=== PATIENT | male | born 1940 | race Caucasian/White ===

== ENCOUNTER 2018-05-21 15:53 | Emergency (ER) | payer MEDICARE, OTHER ==
[2014-05-03 10:16] VITALS: Wt 98.9 kg
[~2018-05-21 15:53] MED LIST: APIX5TAB PO; ASP325 PO; ASP81 PO; ASPI81TA94 PO; ATR80PT PO; BUP75 PO; CHOLESTEROL MEDS; CIPR-214 PO; CIPR-344 PO; CIPR500S3 PO; DOCU-202 PO; ERGO500014 PO; FAMO20TA28 PO; GELA600C5 PO; GING250C3 PO; GLIP-152 PO; HYDR-389 PO; IBUP800T37 PO; KET10 PO; LAMO100T52 PO; LITHOBID PO; LOPE1LIQ49 PO; LURA20TA PO; MECL25TA27 PO; MELA3TAB31 PO; METF-452 PO; MULT1TAB64 PO; NITR0.4T3 SL; OLAN10TA19 PO; OMEG300C PO; OMEG500C5 PO; OMEP-137 PO; OXYB5SYR PO; OXYB5TAB86 PO; PER PO; PHEN200T32 PO; QUET25TA30 PO; ROSU20TA23 PO; SIMV-42 PO; SIMV-44 PO; SLEEPING PILL; TAMS0.4C70 PO; VENL25TA29 PO; [UNRECOGNIZED DRUG - REMARK]; [UNRECOGNIZED DRUG - REMARK]
--- NOTE | 2018-05-21 16:04 | ER Report ---
History and Physical Time Seen By MD: 16:05 HPI/ROS CHIEF COMPLAINT: Right sided neck and shoulder pain HISTORY OF PRESENT ILLNESS: 78-year-old male patient presents to emergency room with complaint of right-sided neck and shoulder pain. Patient states that he has been having problems for the last 3 days with this. He states that he felt things were a little bit tight in the shoulder and then he woke up with significant pain. Patient states he still has significant amounts of pain to the neck. He denies having any injury to the leg. He denies any nausea, vomiting or diarrhea. Patient states she's not had any fevers or chills. Patient states that there is nothing seems to make the pain better or worse. He states the pain is very constant. He denies any pain that radiates down the arm with numbness or tingling in the arm. REVIEW OF SYSTEMS: Respiratory: No cough, no dyspnea. Cardiovascular: No chest pain, no palpitations. Gastrointestinal: No vomiting, no abdominal pain. Musculoskeletal: As noted above Allergies: Coded Allergies: clarithromycin (Verified Allergy, Severe, HIVES, FACE RED AND HOT, 05/21/18) erythromycin base (Verified Allergy, Severe, HEART RACING, FACE RED, HIVES NECK TO CHEST, 05/21/18) paroxetine (Verified Allergy, Severe, HALLUCINATES, 05/21/18) Penicillins (Verified Allergy, Intermediate, RASH, 05/21/18) Uncoded Allergies: bee and wasps (Allergy, Unknown, RED, PAINFUL AND SWELLING, 11/21/13) Home Meds Active Scripts Cyclobenzaprine Hcl (CYCLOBENZAPRINE HCL) 10 Mg Tablet, 10 MG PO TID PRN for MUSCLE SPASMS, #12 TAB Prov:LIZZIE DONIS TOBACCO SWEEPER 05/21/18 Reported Medications Ibuprofen (IBUPROFEN) 800 Mg Tablet, 1 TAB PO TID, #50 TAB 11/30/16 Phenazopyridine Hcl (PHENAZOPYRIDINE HCL) 200 Mg Tablet, 200 MG PO TID, #20 TAB 11/30/16 Famotidine (PEPCID) 20 Mg Tablet, 20 MG PO BID, #20 TAB 11/30/16 Acetaminophen/Hydrocodone (HYDROCODON-ACETAMINOPH 7.5-325) 1 Each Ea, 1 EACH PO Q4-6H PRN for PAIN, #30 EA 11/30/16 Ciprofloxacin Hcl 500 Mg Tab (CIPRO 500 MG TAB) 500 Mg Tablet, 500 MG PO BID for 2 Days, #20 TAKE 500MG TWICE A DAY FOR TWO DAYS, THEN 1/2 PILL TWICE A DAY AT BEDTIME THEREAFTER. 11/30/16 Melatonin (MELATONIN) 3 Mg Tablet, 6 MG PO QHS 11/25/16 Gelatin (GELATIN) 600 Mg Capsule, 1300 MG PO, CAPSULE 11/25/16 Lurasidone Hcl (LATUDA) 20 Mg Tablet, 1 TAB PO DAILY 02/25/15 Lamotrigine (LAMOTRIGINE) 100 Mg Tablet, 100 MG PO DAILY 02/25/15 Multivitamin (MULTI VITAMIN DAILY) 1 Each Tablet, 1 EACH PO DAILY 04/26/14 [place]-3 Fatty Acids (FISH OIL) 500 Mg Capsule.dr, 500 MG PO 04/26/14 Quetiapine Fumarate (SEROQUEL) 25 Mg Tablet, 12.5 MG PO QHS PRN for SLEEP, #60 1 Refill 03/06/14 Nitroglycerin (NITROGLYCERIN) 0.4 Mg Tab.subl, 0.4 MG SL Q5MIN PRN for CHEST PAIN 03/06/14 Romelia Root (ROMELIA) 250 Mg Capsule, 550 MG PO BID, CAPSULE 03/01/14 Aspirin (ASPIRIN) 81 Mg Tab.chew, 81 MG PO QDAY, TAB.CHEW TAKE 1 TABLET BY MOUTH EVERY DAY 11/21/13 Atorvastatin (LIPITOR) 80 Mg Tab, 40 MG PO QHS, TAB TAKE ONE TABLET BY MOUTH ONCE A DAY AT BED TIME 08/30/13 Glipizide (GLIPIZIDE) 5 Mg Tablet, 2.5 MG PO BID 08/30/13 Past Medical/Surgical History Patient has a past medical history of TBI, angina, hyperlipidemia, SOB with exercise, pneumonia, pulmonary embolism, difficulty swallowing, liver disease, prostate cancer, vertigo, type 2 diabetes, bipolar. Patient has surgical history of left inguinal hernia repair, umbilical hernia repair, colonoscopy, a surgery due to cancer, radical prostatectomy, right knee surgery, ankle surgery, hip surgery, thumb surgery, deviated septum. Reviewed Nurses Notes: Yes Hx Smoking: No Smoking Status: Never Smoker Hx Substance Use Disorder: No Hx Alcohol Use: No Constitutional Vital Sign - Last 24 Hours 11/24/18 11/24/18 11/24/18 11/24/18 16:02 16:08 16:23 16:30 Temp 97.9 Pulse 83 81 73 Resp 18 B/P (MAP) 157/95 113/93 (100) Pulse Ox 95 94 96 O2 Delivery Room Air 05/21/18 05/21/18 05/21/18 05/21/18 16:38 16:53 17:00 17:08 Pulse 76 71 70 B/P (MAP) 127/88 (101) Pulse Ox 95 94 93 05/21/18 05/21/18 05/21/18 05/21/18 17:30 17:38 17:43 17:58 Pulse 70 66 66 B/P (MAP) 128/78 (95) Pulse Ox 96 93 94 05/21/18 05/21/18 05/21/18 05/21/18 18:00 18:13 18:28 18:30 Pulse 67 69 B/P (MAP) 135/63 (87) 117/78 (91) Pulse Ox 94 94 05/21/18 05/21/18 05/21/18 18:43 18:58 19:00 Pulse 72 69 B/P (MAP) 131/75 (93) Pulse Ox 93 96 Physical Exam General Appearance: The patient is alert, has no immediate need for airway protection and no current signs of toxicity. Respiratory: Chest is non tender, lungs are clear to auscultation. Cardiac: regular rate and rhythm Musculoskeletal: Neck: Neck is supple and tender, patient has less discomfort palpation. Extremities have full range of motion and are non tender. Skin: No rashes or lesions. Psych: Patient does have a rambling speech. DIFFERENTIAL DIAGNOSIS: After history and physical exam differential diagnosis was considered for cervical spine strain, muscle spasm. Medical Decision Making ED Course/Re-evaluation ED Course Patient was admitted exam room, history and physical were obtained. Differential diagnoses were considered. On examination lungs are clear, heart is regular, patient does have muscle tightness to the right trapezius muscle. An x-ray of the cervical spine was done which showed no acute findings. Patient was requesting trigger point injection to help with his pain. Trigger point and check injections were done to the trapezius muscle. Patient did have improvement in his discomfort. He had increased range of motion. We will prescribe a muscle relaxer and have him follow-up with his primary care provider in the next week. He is to limit his activity by pain. He is to return to emergency room if condition worsens. Patient did have flight of ideas and rapid speech while he was here. He talked about being manic and has felt like his melba has gotten wo rse over the last 3 weeks. I did offer him admission to behavioral health which he adamantly refused. Decision to Disposition Date: May 21, 2018 Decision to Disposition Time: 19:01 Depart Departure Latest Vital Signs Vital Signs Date Time Temp Pulse Resp B/P (MAP) Pulse Ox O2 Delivery O2 Flow Rate FiO2 05/21/18 19:00 131/75 (93) 05/21/18 18:58 69 96 05/21/18 16:02 97.9 18 Room Air Impression: Primary Impression: Muscle spasm Condition: Improved Disposition: HOME OR SELF-CARE New Scripts Cyclobenzaprine Hcl (CYCLOBENZAPRINE HCL) 10 Mg Tablet 10 MG PO TID PRN for MUSCLE SPASMS, #12 TAB Prov: LIZZIE DONIS 05/21/18 Patient Instructions: Muscle Spasm (ED) Additional Instructions: Limit activity by pain. Follow up with your primary care provider in the next week. Take the medication as prescribed. Return to the ER if condition worsens. Follow up with Physical Therapy to help with the muscle spasms of the neck. LIZZIE DONIS May 21, 2018 16:04
--- NOTE | 2018-05-21 18:17 | RADIOLOGY IMAGING REPORT ---
FACILITY: [facility] PATIENT NAME: Sagar Marshall : 1940 MR: [id number] V: [id number] EXAM DATE: ORDERING PHYSICIAN: LIZZIE DONIS TECHNOLOGIST: Location: [facility] Patient: Sagar Marshall : 1940 Visit/Account:[id number] Date of Sevice: 05/21/2018 CERVICAL SPINE MIN 4 VIEW INDICATION: Shoulder pain. COMPARISON: None available FINDINGS: 5 views of cervical spine. Mild reverse curvature due to positioning and/or degenerative changes. The vertebral bodies are aligned. No fracture or facet dislocation. Mild osteopenia. There i s diffuse [id number] degenerative changes more prominent cervical spine lower region. These inc lude disc space narrowing, endplate changes, osteophytes and facet arthropathy. Partial bony fusion o f C5-6. The endplates are maintained. The neural foramina do show some encroachment by the osteophyte s bilaterally. Prevertebral soft tissues are normal. Lung apices are clear. A benign soft tissue calc ification seen in the posterior neck soft tissue. IMPRESSION: Degenerative changes without acute abnormality. Report Dictated By: Ray Florian at 05/21/2018 6:12 PM Report E-Signed By: Ray Florian at 05/21/2018 6:14 PM WSN:[id number]
[2018-05-21 19:00] VITALS: BP 131/75
[2018-05-21] MEDS ORDERED: CYCL10TA29 PO (19:01)
[2018-05-21] MEDS ORDERED: CYCLOBENZAPRINE HCL 10 MG TH PO ONE (20:00)
== END 2018-05-21 19:18 | disposition home or self-care (01) ==
LOC: ER 16:00
DX: M62.838 Other muscle spasm (principal)
CPT/HCPCS: 72050; 99283

== ENCOUNTER 2018-05-24 23:01 | Emergency (ER) | payer MEDICARE, OTHER ==
[2014-05-03 10:16] VITALS: BMI 30.3
[~2018-05-24 23:01] MED LIST changes: +CYCL10TA29 PO
--- NOTE | 2018-05-24 23:03 | ER Report ---
History and Physical Time Seen By MD: 23:04 HPI/ROS CHIEF COMPLAINT: Left rib injury HISTORY OF PRESENT ILLNESS: 78-year-old male presents ambulatory to the ER complaining of left rib pain. He fell at home several hours ago injuring his left lower ribs. He shows a bruise to the lateral lower ribs. He has no shortness of breath. He's had no hemoptysis. He notes sharp pain 9/10 at a rate of bite breathing and touching the area. REVIEW OF SYSTEMS: Respiratory: No cough, no dyspnea. Cardiovascular: No chest pain, no palpitations. Gastrointestinal: No vomiting, no abdominal pain. Musculoskeletal: No back pain. Allergies: Coded Allergies: clarithromycin (Verified Allergy, Severe, HIVES, FACE RED AND HOT, 05/24/18) erythromycin base (Verified Allergy, Severe, HEART RACING, FACE RED, HIVES NECK TO CHEST, 05/24/18) paroxetine (Verified Allergy, Severe, HALLUCINATES, 05/24/18) Penicillins (Verified Allergy, Intermediate, RASH, 05/24/18) Uncoded Allergies: bee and wasps (Allergy, Unknown, RED, PAINFUL AND SWELLING, 11/21/13) Home Meds Active Scripts Hydrocodone Bit/Acetaminophen (HYDROCODON-ACETAMINOPHEN 5-325) 1 Each Tablet, 1 EACH PO Q4-6H PRN for PAIN, #8 TAKE ONE TABLET BY MOUTH EVERY 4-6 HOURS NEEDED FOR PAIN Prov:EMILY BETANCOURT DO 05/24/18 Cyclobenzaprine Hcl (CYCLOBENZAPRINE HCL) 10 Mg Tablet, 10 MG PO TID PRN for MUSCLE SPASMS, #12 TAB Prov:LIZZIE DONIS METROLOGY ENGINEER 05/21/18 Reported Medications Ibuprofen (IBUPROFEN) 800 Mg Tablet, 1 TAB PO TID, #50 TAB 11/30/16 Phenazopyridine Hcl (PHENAZOPYRIDINE HCL) 200 Mg Tablet, 200 MG PO TID, #20 TAB 11/30/16 Famotidine (PEPCID) 20 Mg Tablet, 20 MG PO BID, #20 TAB 11/30/16 Acetaminophen/Hydrocodone (HYDROCODON-ACETAMINOPH 7.5-325) 1 Each Ea, 1 EACH PO Q4-6H PRN for PAIN, #30 EA 11/30/16 Ciprofloxacin Hcl 500 Mg Tab (CIPRO 500 MG TAB) 500 Mg Tablet, 500 MG PO BID for 2 Days, #20 TAKE 500MG TWICE A DAY FOR TWO DAYS, THEN 1/2 PILL TWICE A DAY AT BEDTIME THEREAFTER. 11/30/16 Melatonin (MELATONIN) 3 Mg Tablet, 6 MG PO QHS 11/25/16 Gelatin (GELATIN) 600 Mg Capsule, 1300 MG PO, CAPSULE 11/25/16 Lurasidone Hcl (LATUDA) 20 Mg Tablet, 1 TAB PO DAILY 02/25/15 Lamotrigine (LAMOTRIGINE) 100 Mg Tablet, 100 MG PO DAILY 02/25/15 Multivitamin (MULTI VITAMIN DAILY) 1 Each Tablet, 1 EACH PO DAILY 04/26/14 [place]-3 Fatty Acids (FISH OIL) 500 Mg Capsule.dr, 500 MG PO 04/26/14 Quetiapine Fumarate (SEROQUEL) 25 Mg Tablet, 12.5 MG PO QHS PRN for SLEEP, #60 1 Refill 03/06/14 Nitroglycerin (NITROGLYCERIN) 0.4 Mg Tab.subl, 0.4 MG SL Q5MIN PRN for CHEST PAIN 03/06/14 Romelia Root (ROMELIA) 250 Mg Capsule, 550 MG PO BID, CAPSULE 03/01/14 Aspirin (ASPIRIN) 81 Mg Tab.chew, 81 MG PO QDAY, TAB.CHEW TAKE 1 TABLET BY MOUTH EVERY DAY 11/21/13 Atorvastatin (LIPITOR) 80 Mg Tab, 40 MG PO QHS, TAB TAKE ONE TABLET BY MOUTH ONCE A DAY AT BED TIME 08/30/13 Glipizide (GLIPIZIDE) 5 Mg Tablet, 2.5 MG PO BID 08/30/13 Past Medical/Surgical History Patient has a past medical history of TBI, angina, hyperlipidemia, SOB with exercise, pneumonia, pulmonary embolism, difficulty swallowing, liver disease, prostate cancer, vertigo, type 2 diabetes, bipolar. Patient has surgical history of left inguinal hernia repair, umbilical hernia repair, colonoscopy, a surgery due to cancer, radical prostatectomy, right knee surgery, ankle surgery, hip surgery, thumb surgery, deviated septum. Reviewed Nurses Notes: Yes Old Medical Records Reviewed: Yes Hx Smoking: No Smoking Status: Never Smoker Hx Substance Use Disorder: No Hx Alcohol Use: No Constitutional Vital Sign - Last 24 Hours 05/24/18 05/24/18 05/24/18 05/24/18 23:01 23:07 23:08 23:15 Temp 98.1 Pulse ??? 89 Resp 16 B/P (MAP) 132/73 (92) 132/73 ???/??? (1665) Pulse Ox 92 O2 Delivery Room Air 05/24/18 05/24/18 05/24/18 05/24/18 23:16 23:30 23:31 23:45 Pulse ? B/P (MAP) 116/77 (90) 113/67 (82) Pulse Ox 92 05/24/18 23:46 Pulse ??? Pulse Ox 92 Physical Exam General Appearance: The patient is alert, has no immediate need for airway protection and no current signs of toxicity.. Palpation of the head and neck reveals no tenderness or trauma HEENT: Pupils equal and round no injection. Oropharynx without redness or exudate, mucous. Membranes are moist. No dental trauma Respiratory: Chest is non tender, lungs are clear to auscultation. There is bruising to the right lateral lower ribs in the middle axillary line. There is no CVA tenderness. On auscultation. Lung sounds are present throughout all lung carrillo. Cardiac: regular rate and rhythm Gastrointestinal: Abdomen is soft and non tender, no masses, bowel sounds normal. Musculoskeletal: Neck: Neck is supple and non tender. Extremities have full range of motion and are non tender. No evidence of trauma Skin: No rashes or lesions. DIFFERENTIAL DIAGNOSIS: After history and physical exam differential diagnosis was considered for fractured ribs, pneumothorax, hemothorax, rib contusion, renal contusion Medical Decision Making EKG/Imaging Imaging X-ray: Two-view chest x-ray, 2 views of left ribs obliquely was obtained. I viewed the images myself on the PACS system. My interpretation of the images is: No fracture no dislocation, no pneumothorax, no hemothorax. The radiologist interpretation had no clinically significant variation from this interpretation. ED Course/Re-evaluation ED Course Patient was admitted to an examination room. H&P was done. The differential diagnoses was considered. On clinical examination. She has significant left rib tenderness. His lung sounds are intact. His vital signs are stable. He has an adequate pulse ox. Patient sent for a left rib series and chest x-ray which were all unremarkable for fractured ribs. Patient's advised Tylenol and ibuprofen for pain relief. He would like something stronger for pain. He is given a limited supply of hydrocodone for temporary pain relief. She's been prescribed this before. Patient advised to follow-up with primary care if unimproved in 3-5 days. Decision to Disposition Date: May 24, 2018 Decision to Disposition Time: 23:42 Depart Departure Latest Vital Signs Vital Signs Date Time Temp Pulse Resp B/P (MAP) Pulse Ox O2 Delivery O2 Flow Rate FiO2 05/24/18 23:46 ??? 92 05/24/18 23:45 113/67 (82) 05/24/18 23:08 98.1 16 Room Air Impression: Primary Impression: Contusion of rib on left side Additional Impressions: Diabetes type 1, controlled Bipolar 1 disorder, manic, mild Condition: Improved Disposition: HOME OR SELF-CARE New Scripts Hydrocodone Bit/Acetaminophen (HYDROCODON-ACETAMINOPHEN 5-325) 1 Each Tablet 1 EACH PO Q4-6H PRN for PAIN, #8 TAKE ONE TABLET BY MOUTH EVERY 4-6 HOURS NEEDED FOR PAIN Prov: EMILY BETANCOURT DO 05/24/18 Patient Instructions: Rib Contusion (ED) Additional Instructions: Apply ice packs to the affected area for 2 days Take ibuprofen and Tylenol as needed for pain relief Follow-up with your primary care if unimproved in 3-5 days Problem Qualifiers Primary Impression: Contusion of rib on left side Encounter type: initial encounter Qualified Codes: S20.212A - Contusion of left front wall of thorax, initial encounter Additional Impressions: Diabetes type 1, controlled Diabetes mellitus complication status: without complication Qualified Codes: E10.9 - Type 1 diabetes mellitus without complications EMILY BETANCOURT DO May 24, 2018 23:03
[2018-05-24 23:45] VITALS: BP 113/67
[2018-05-24] MEDS ORDERED: LOR5/325 PO (23:50)
[2018-05-24] MEDS ORDERED: ACET/HYDROC 5/325MG TH ER ONLY 2 TAB/BOTTLE PO ONE (23:55)
--- NOTE | 2018-05-26 09:03 | RADIOLOGY IMAGING REPORT ---
FACILITY: [facility] PATIENT NAME: Sagar Marshall : 1940 MR: [id number] V: [id number] EXAM DATE: ORDERING PHYSICIAN: EMILY BETANCOURT TECHNOLOGIST: Location: [facility] [place] Patient: Sagar Marshall : 1940 Visit/Account:[id number] Date of Sevice: 05/24/2018 Chest and left ribs: Indication: Injury. Technique: A frontal view of the chest and 2 oblique views of the left ribs were obtained. Comparison: 11/25/2016 Skeletal and soft tissue structures: There are chronic postoperative changes at the distal end of the left clavicle. No fracture or acute skeletal deformity is identified. Heart and mediastinum: Within normal limits. Lung carrillo: Well-expanded and clear. Pleural spaces: No evidence of pneumothorax or effusion. Impression: No acute deformity or significant change. Report Dictated By: Denis Eubanks MD at 05/25/2018 1:24 AM Report E-Signed By: Denis Eubanks MD at 05/25/2018 1:29 AM WSN:[id number]
--- NOTE | 2018-05-26 09:04 | RADIOLOGY IMAGING REPORT ---
FACILITY: [facility] [place] PATIENT NAME: Sagar Marshall : 1940 MR: [id number] V: [id number] EXAM DATE: ORDERING PHYSICIAN: EMILY BETANCOURT TECHNOLOGIST: Location: [facility] [place] Patient: Sagar Marshall : 1940 Visit/Account:[id number] Date of Sevice: 05/24/2018 CHEST: Indication: Injury. Technique: AP and lateral views were obtained. Comparison: 11/25/2016 Skeletal and soft tissue structures: There is chronic postoperative deformity of the distal end of th e left clavicle. No fracture or acute skeletal deformity is identified. Heart and mediastinum: Within normal limits. Lung carrillo: Well-expanded. No focal opacities. Pleural spaces: Unremarkable. Impression: No acute deformity or significant change. Report Dictated By: Denis Eubanks MD at 05/25/2018 1:28 AM Report E-Signed By: Denis Eubanks MD at 05/25/2018 1:29 AM WSN:[id number]
== END 2018-05-25 00:21 | disposition home or self-care (01) ==
LOC: ER 23:22
DX: S20.212A Contusion of left front wall of thorax, initial encounter (principal); E10.9 Type 1 diabetes mellitus without complications; F31.9 Bipolar disorder, unspecified
CPT/HCPCS: 71046; 71100; 99284

== ENCOUNTER 2018-05-28 16:54 | Emergency (ER) | payer MEDICARE, OTHER ==
[2014-05-03 10:16] VITALS: Wt 90.9 kg
[~2018-05-28 16:54] MED LIST changes: +LOR5/325 PO
[2018-05-28] MEDS ORDERED: LAMO300T2 PO (17:24)
--- NOTE | 2018-05-28 17:47 | ER Report ---
History and Physical Time Seen By MD: 17:48 Hx. of Stated Complaint: pt reports severe pain in back and neck, fell last week and cleared of acute injury (ОЛЬГА SAUCEDO MD) HPI/ROS 78 male on Eliquis presents to the ED for the 3rd time after a fall 4-5 days ago. States the pain is worse. Pain meds not working. No hematurai. No feeling lightheaded or weak. Ecchymoses has worsened. No other complaints. (ОЛЬГА SAUCEDO MD) Allergies: Coded Allergies: clarithromycin (Verified Allergy, Severe, HIVES, FACE RED AND HOT, 05/24/18) erythromycin base (Verified Allergy, Severe, HEART RACING, FACE RED, HIVES NECK TO CHEST, 05/24/18) paroxetine (Verified Allergy, Severe, HALLUCINATES, 05/24/18) Penicillins (Verified Allergy, Intermediate, RASH, 05/24/18) Uncoded Allergies: bee and wasps (Allergy, Unknown, RED, PAINFUL AND SWELLING, 11/21/13) Home Meds Active Scripts Cyclobenzaprine Hcl (CYCLOBENZAPRINE HCL) 10 Mg Tablet, 10 MG PO TID PRN for muscle spasm relief, #9 TAB Prov:EMILY BETANCOURT DO 05/28/18 Hydrocodone Bit/Acetaminophen (HYDROCODON-ACETAMINOPHEN 5-325) 1 Each Tablet, 1 EACH PO Q4-6H PRN for PAIN, #12 TAKE ONE TABLET BY MOUTH EVERY 4-6 HOURS NEEDED FOR PAIN Prov:EMILY BETANCOURT DO 05/28/18 Reported Medications Apixaban (ELIQUIS) 5 Mg Tablet, 5 MG PO 05/28/18 Lamotrigine (LAMOTRIGINE) 300 Mg Tab.er.24, 300 MG PO 05/28/18 Ibuprofen (IBUPROFEN) 800 Mg Tablet, 1 TAB PO TID, #50 TAB 11/30/16 Phenazopyridine Hcl (PHENAZOPYRIDINE HCL) 200 Mg Tablet, 200 MG PO TID, #20 TAB 11/30/16 Famotidine (PEPCID) 20 Mg Tablet, 20 MG PO BID, #20 TAB 11/30/16 Melatonin (MELATONIN) 3 Mg Tablet, 6 MG PO QHS 11/25/16 Gelatin (GELATIN) 600 Mg Capsule, 1300 MG PO, CAPSULE 11/25/16 Lurasidone Hcl (LATUDA) 20 Mg Tablet, 1 TAB PO DAILY 02/25/15 Multivitamin (MULTI VITAMIN DAILY) 1 Each Tablet, 1 EACH PO DAILY 04/26/14 [place]-3 Fatty Acids (FISH OIL) 500 Mg Capsule.dr, 500 MG PO 04/26/14 Quetiapine Fumarate (SEROQUEL) 25 Mg Tablet, 12.5 MG PO QHS PRN for SLEEP, #60 1 Refill 03/06/14 Nitroglycerin (NITROGLYCERIN) 0.4 Mg Tab.subl, 0.4 MG SL Q5MIN PRN for CHEST PAIN 03/06/14 Yvonne Root (YVONNE) 250 Mg Capsule, 550 MG PO BID, CAPSULE 03/01/14 Aspirin (ASPIRIN) 81 Mg Tab.chew, 81 MG PO QDAY, TAB.CHEW TAKE 1 TABLET BY MOUTH EVERY DAY 11/21/13 Atorvastatin (LIPITOR) 80 Mg Tab, 40 MG PO QHS, TAB TAKE ONE TABLET BY MOUTH ONCE A DAY AT BED TIME 08/30/13 Glipizide (GLIPIZIDE) 5 Mg Tablet, 2.5 MG PO BID 08/30/13 Discontinued Reported Medications Rivaroxaban 15 Mg (XARELTO 15 MG) 15 Mg Tablet, 15 MG PO, TAB 05/28/18 Acetaminophen/Hydrocodone (HYDROCODON-ACETAMINOPH 7.5-325) 1 Each Ea, 1 EACH PO Q4-6H PRN for PAIN, #30 EA 11/30/16 Ciprofloxacin Hcl 500 Mg Tab (CIPRO 500 MG TAB) 500 Mg Tablet, 500 MG PO BID for 2 Days, #20 TAKE 500MG TWICE A DAY FOR TWO DAYS, THEN 1/2 PILL TWICE A DAY AT BEDTIME THEREAFTER. 11/30/16 Lamotrigine (LAMOTRIGINE) 100 Mg Tablet, 100 MG PO DAILY 02/25/15 Discontinued Scripts Hydrocodone Bit/Acetaminophen (HYDROCODON-ACETAMINOPHEN 5-325) 1 Each Tablet, 1 EACH PO Q4-6H PRN for PAIN, #8 TAKE ONE TABLET BY MOUTH EVERY 4-6 HOURS NEEDED FOR PAIN Prov:EMILY BETANCOURT DO 05/24/18 Cyclobenzaprine Hcl (CYCLOBENZAPRINE HCL) 10 Mg Tablet, 10 MG PO TID PRN for MUSCLE SPASMS, #12 TAB Prov:LIZZIE DONIS 05/21/18 Reviewed Nurses Notes: Yes Old Medical Records Reviewed: Yes (ОЛЬГА SAUCEDO MD) Hx Smoking: No Smoking Status: Never Smoker Hx Substance Use Disorder: No Hx Alcohol Use: No (ОЛЬГА SAUCEDO MD) Constitutional Vital Sign - Last 24 Hours 05/28/18 05/28/18 05/28/18 05/28/18 17:04 17:12 17:24 17:30 Temp 97.7 Pulse 92 86 Resp 16 B/P (MAP) 151/76 151/76 (101) 125/81 (96) Pulse Ox 96 94 O2 Delivery Room Air 05/28/18 05/28/18 05/28/18 05/28/18 17:39 17:54 18:00 18:09 Pulse 88 84 86 B/P (MAP) 116/95 (102) Pulse Ox 96 94 92 05/28/18 05/28/18 05/28/18 05/28/18 18:24 18:30 18:39 18:44 Pulse 82 85 ??? B/P (MAP) 139/84 (102) Pulse Ox 92 88 05/28/18 05/28/18 05/28/18 05/28/18 19:00 19:14 19:30 19:44 Pulse 83 88 B/P (MAP) 128/69 (88) 131/69 (89) Pulse Ox 90 90 05/28/18 19:49 Pulse 81 Pulse Ox 91 (EMILY BETANCOURT DO) Physical Exam General Appearance: The patient is alert, has no immediate need for airway protection and no current signs of toxicity. Eyes: Pupils equal and round no injection. Respiratory: Chest is non tender, lungs are clear to auscultation. Cardiac: regular rate and rhythm Gastrointestinal: Abdomen is soft and non tender, no masses, bowel sounds normal. Musculoskeletal: TTP of the left lower back ribs and flank Neck: Neck is supple and non tender. Extremities have full range of motion and are non tender. Skin: ecchymoses to the left flank and posterior thoracic region (ОЛЬГА SAUCEDO MD) Medical Decision Making Data Points Result Diagram: 05/28/18175705/28/181757 Laboratory Hematology Test 05/28/18 17:58 Red Blood Count 5.45 M/uL (4.00-5.60) Mean Corpuscular Volume 91.4 fL (80.0-96.0) Mean Corpuscular Hemoglobin 31.0 pg (26.0-33.0) Mean Corpuscular Hemoglobin Concent 33.9 g/dL (32.0-36.0) Red Cell Distribution Width 14.2 % (11.5-14.5) Mean Platelet Volume 9.2 fL (7.2-11.1) Neutrophils (%) (Auto) 70.0 % (39.4-72.5) Lymphocytes (%) (Auto) 15.6 % (17.6-49.6) Monocytes (%) (Auto) 11.4 % (4.1-12.4) Eosinophils (%) (Auto) 2.0 % (0.4-6.7) Basophils (%) (Auto) 1.0 % (0.3-1.4) Nucleated RBC Relative Count (auto) 0.1 /100WBC Neutrophils # (Auto) 4.8 K/uL (2.0-7.4) Lymphocytes # (Auto) 1.1 K/uL (1.3-3.6) Monocytes # (Auto) 0.8 K/uL (0.3-1.0) Eosinophils # (Auto) 0.1 K/uL (0.0-0.5) Basophils # (Auto) 0.1 K/uL (0.0-0.1) Nucleated RBC Absolute Count (auto) 0.01 K/uL Sodium Level 137 mmol/L (137-145) Potassium Level 4.7 mmol/L (3.5-5.0) Chloride Level 104 mmol/L (98-107) Carbon Dioxide Level 27 mmol/L (22-30) Blood Urea Nitrogen 16 mg/dl (9-21) Creatinine 1.30 mg/dl (0.66-1.25) Glomerular Filtration Rate Calc 53.3 Random Glucose 130 mg/dl (75-110) Calcium Level 8.7 mg/dl (8.4-10.2) Total Bilirubin 0.8 mg/dl (0.2-1.3) Aspartate Amino Transf (AST/SGOT) 24 U/L (0-35) Alanine Aminotransferase (ALT/SGPT) 43 U/L (0-56) Alkaline Phosphatase 76 U/L (0-126) Total Protein 6.3 g/dl (6.3-8.2) Albumin 3.8 g/dl (3.5-5.0) Chemistry Test 05/28/18 17:58 White Blood Count 6.9 k/uL (4.5-11.0) Red Blood Count 5.45 M/uL (4.00-5.60) Hemoglobin 16.9 g/dL (14.0-18.0) Hematocrit 49.8 % (42.0-52.0) Mean Corpuscular Volume 91.4 fL (80.0-96.0) Mean Corpuscular Hemoglobin 31.0 pg (26.0-33.0) Mean Corpuscular Hemoglobin Concent 33.9 g/dL (32.0-36.0) Red Cell Distribution Width 14.2 % (11.5-14.5) Platelet Count 133 K/uL (150-450) Mean Platelet Volume 9.2 fL (7.2-11.1) Neutrophils (%) (Auto) 70.0 % (39.4-72.5) Lymphocytes (%) (Auto) 15.6 % (17.6-49.6) Monocytes (%) (Auto) 11.4 % (4.1-12.4) Eosinophils (%) (Auto) 2.0 % (0.4-6.7) Basophils (%) (Auto) 1.0 % (0.3-1.4) Nucleated RBC Relative Count (auto) 0.1 /100WBC Neutrophils # (Auto) 4.8 K/uL (2.0-7.4) Lymphocytes # (Auto) 1.1 K/uL (1.3-3.6) Monocytes # (Auto) 0.8 K/uL (0.3-1.0) Eosinophils # (Auto) 0.1 K/uL (0.0-0.5) Basophils # (Auto) 0.1 K/uL (0.0-0.1) Nucleated RBC Absolute Count (auto) 0.01 K/uL Glomerular Filtration Rate Calc 53.3 Calcium Level 8.7 mg/dl (8.4-10.2) Total Bilirubin 0.8 mg/dl (0.2-1.3) Aspartate Amino Transf (AST/SGOT) 24 U/L (0-35) Alanine Aminotransferase (ALT/SGPT) 43 U/L (0-56) Alkaline Phosphatase 76 U/L (0-126) Total Protein 6.3 g/dl (6.3-8.2) Albumin 3.8 g/dl (3.5-5.0) (EMILY BETANCOURT DO) EKG/Imaging Imaging Results: CT scan of the chest, abdomen and pelvis with IV contrast was obtained. The r esults of the study are : Examination: CT chest, abdomen, and pelvis with contrast Comparison: CT 06/05/2008. History: Fall 4 days ago. Anticoagulated. Left sided chest and flank pain. Procedure: Multiplanar contrast-enhanced imaging of the chest, abdomen, and pelvis with 75 mL intravenous Isovue 370. One of the following dose optimization techniques was utilized in the performance of this exam: Automated exposure control; adjustment of the mA and/or kV according to the patient's size; or use of an iterative reconstruction technique. Specific details can be referenced in the facility's radiology CT exam operational policy. Findings: CT chest: Mediastinum: Cardiac chamber size is normal. No pericardial effusion. Mild coronary calcifications. No thoracic aortic aneurysm. Main pulmonary artery size is normal. No mediastinal hemorrhage. Lymph nodes: Negative. Lungs and pleura: Minimal volume loss. No consolidation. 8 x 5 mm nodule in the left lower lobe lateral costophrenic space is unchanged since 2007 and is considered a benign finding. No pneumothorax, edema, or effusion. Airways: Negative. Diaphragm: Intact. CT abdomen and pelvis: Liver: Subtle regions of geographic decreased hepatic attenuation is suggestive of hepatic steatosis. Gallbladder and biliary system: Negative Spleen: Negative Pancreas: Negative Adrenal glands: Negative Kidneys and urinary bladder: There are a few simple appearing cysts bilaterally, the largest of which arises from the right kidney mid pole and measures 2.9 cm. No renal mass or hydronephrosis. Urinary bladder is unremarkable. Vessels: Aortoiliac mild atherosclerosis. No abdominal aortic aneurysm. No retroperitoneal hemorrhage. Portal venous system and IVC are unremarkable. Bowel and mesentery: Stomach, small bowel, and appendix are unremarkable. Moderate amount of stool in the colon. Sigmoid mild diverticulosis. No bowel or mesenteric inflammation. Pelvic organs: Prostatectomy. Free air/free fluid: None Lymph nodes: Negative Abdominal wall and subcutaneous tissues: Inguinal herniorrhaphy. No acute findings. Osseous structures: Thoracolumbar spine: No vertebral body height loss or malalignment. Multilevel mild degenerative change. No fracture. Pelvic ring: Negative Ribs: Left posterolateral 10th rib nondisplaced fracture. Visualized sternum, scapula, and clavicles: Negative IMPRESSION: 1. Left posterolateral 10th rib nondisplaced fracture. 2. No other findings of trauma or acute disease in the chest, abdomen, or pelvis. 3. Additional chronic/incidental findings as detailed above. The study was read by the radiologist. I viewed the images myself on the PACS system. (EMILY BETANCOURT DO) ED Course/Re-evaluation ED Course No acute injuries found on CT scan. Will continue with his pain regimen and [facility] (ОЛЬГА SAUCEDO MD) Clinical Indication for ER IV: Hydration, IV Access ED Course Care was assumed at shift change from Dr. Ольга Saucedo with a diagnostic CT chest, abdomen and pelvis pending with contrast since patient had fallen and injured his left ribs. The study was unremarkable except for one single nondisplaced left 10th rib fracture. Patient was reassured and discharged home with additional medication for muscle spasm relief and pain relief. He is cautioned not to use the 2 together. She is advised to [facility]. Decision to Disposition Date: May 28, 2018 Decision to Disposition Time: 19:32 (EMILY BETANCOURT DO) Depart Departure Latest Vital Signs Vital Signs Date Time Temp Pulse Resp B/P (MAP) Pulse Ox O2 Delivery O2 Flow Rate FiO2 05/28/18 19:49 81 91 05/28/18 19:30 131/69 (89) 05/28/18 17:04 97.7 16 Room Air (EMILY BETANCOURT DO) Impression: Primary Impression: Left rib fracture Condition: Improved Disposition: HOME OR SELF-CARE New Scripts Cyclobenzaprine Hcl (CYCLOBENZAPRINE HCL) 10 Mg Tablet 10 MG PO TID PRN for muscle spasm relief, #9 TAB Prov: EMILY BETANCOURT DO 05/28/18 Hydrocodone Bit/Acetaminophen (HYDROCODON-ACETAMINOPHEN 5-325) 1 Each Tablet 1 EACH PO Q4-6H PRN for PAIN, #12 TAKE ONE TABLET BY MOUTH EVERY 4-6 HOURS NEEDED FOR PAIN Prov: EMILY BETANCOURT DO 05/28/18 Patient Instructions: Rib Fracture (ED) Additional Instructions: Follow-up with [facility] primary [facility] or the [facility] if unimproved in 3-5 days Problem Qualifiers Primary Impression: Left rib fracture Encounter type: initial encounter Rib fracture type: single rib Fracture type: closed Qualified Codes: S22.32XA - Fracture of one rib, left side, initial encounter for closed fracture ОЛЬГА SAUCEDO MD May 28, 2018 17:47 EMILY BETANCOURT DO May 28, 2018 19:32
[2018-05-28] MEDS ORDERED: RIVA15TA PO (18:04)
[2018-05-28] MEDS ORDERED: APIX5TAB PO (18:04)
[2018-05-28 18:06] LABS: PLATELET COUNT, AUTOMATED 133 K/uL (150-450)
[2018-05-28] MEDS ORDERED: IOPAMIDOL 76% 75 ML INFUS BTL 75 ML ONE (18:49)
[2018-05-28] MEDS ORDERED: NS(*) 0.9% 50 ML BAG 50 ML ONE (18:49)
--- NOTE | 2018-05-28 19:27 | RADIOLOGY IMAGING REPORT ---
FACILITY: [facility] PATIENT NAME: Sagar Marshall : 1940 MR: [id number] V: [id number] EXAM DATE: [id number] ORDERING PHYSICIAN: DEVIKA SAUCEDO TECHNOLOGIST: Location: [facility] - [place] Patient: Sagar Marshall : 1940 Visit/Account:[id number] Date of Sevice: 05/28/2018 Examination: CT chest, abdomen, and pelvis with contrast Comparison: CT 06/05/2008. History: Fall 4 days ago. Anticoagulated. Left sided chest and flank pain. Procedure: Multiplanar contrast-enhanced imaging of the chest, abdomen, and pelvis with 75 mL intrave nous Isovue 370. One of the following dose optimization techniques was utilized in the performance of this exam: Automated exposure control; adjustment of the mA and/or kV according to the patient's siz e; or use of an iterative reconstruction technique. Specific details can be referenced in the [facility]'s radiology CT exam operational policy. Findings: CT chest: Mediastinum: Cardiac chamber size is normal. No pericardial effusion. Mild coronary calcifications. N o thoracic aortic aneurysm. Main pulmonary artery size is normal. No mediastinal hemorrhage. Lymph nodes: Negative. Lungs and pleura: Minimal volume loss. No consolidation. 8 x 5 mm nodule in the left lower lobe later al costophrenic space is unchanged since 2007 and is considered a benign finding. No pneumothorax, ed marisol, or effusion. Airways: Negative. Diaphragm: Intact. CT abdomen and pelvis: Liver: Subtle regions of geographic decreased hepatic attenuation is suggestive of hepatic steatosis. Gallbladder and biliary system: Negative Spleen: Negative Pancreas: Negative Adrenal glands: Negative Kidneys and urinary bladder: There are a few simple appearing cysts bilaterally, the largest of which arises from the right kidney mid pole and measures 2.9 cm. No renal mass or hydronephrosis. Urinary bladder is unremarkable. Vessels: Aortoiliac mild atherosclerosis. No abdominal aortic aneurysm. No retroperitoneal hemorrhage . Portal venous system and IVC are unremarkable. Bowel and mesentery: Stomach, small bowel, and appendix are unremarkable. Moderate amount of stool in the colon. Sigmoid mild diverticulosis. No bowel or mesenteric inflammation. Pelvic organs: Prostatectomy. Free air/free fluid: None Lymph nodes: Negative Abdominal wall and subcutaneous tissues: Inguinal herniorrhaphy. No acute findings. Osseous structures: Thoracolumbar spine: No vertebral body height loss or malalignment. Multilevel mild degenerative wagner ge. No fracture. Pelvic ring: Negative Ribs: Left posterolateral 10th rib nondisplaced fracture. Visualized sternum, scapula, and clavicles: Negative IMPRESSION: 1. Left posterolateral 10th rib nondisplaced fracture. 2. No other findings of trauma or acute disease in the chest, abdomen, or pelvis. 3. Additional chronic/incidental findings as detailed above. Report Dictated By: Denny Juan MD at 05/28/2018 7:10 PM Report E-Signed By: Denny Juan MD at 05/28/2018 7:23 PM WSN:[id number]
[2018-05-28 19:30] VITALS: BP 131/69
[2018-05-28] MEDS ORDERED: LOR5/325 PO (19:48)
[2018-05-28] MEDS ORDERED: ACET/HYDROC 5/325MG TH ER ONLY 2 TAB/BOTTLE PO ONE (20:10)
[2018-05-28] MEDS ORDERED: CYCL10TA29 PO (20:11)
== END 2018-05-28 20:30 | disposition home or self-care (01) ==
LOC: ER 17:51
DX: S22.32XA Fracture of one rib, left side, initial encounter for closed fracture (principal)
CPT/HCPCS: 71260; 74177; 85025; 99284; J7050; Q9967; 82040; 82247; 82310; 82374; 82435; 82565; 82947; 84075; 84132; 84155; 84295; 84450; 84460; 84520

== ENCOUNTER 2018-06-08 09:58 | Emergency (ER) | payer MEDICARE, OTHER ==
[2014-05-03 10:16] VITALS: Wt 90.7 kg
[~2018-06-08 09:58] MED LIST changes: +LAMO300T2 PO; +RIVA15TA PO
--- NOTE | 2018-06-08 10:02 | ER Report ---
History and Physical Time Seen By MD: 10:02 HPI/ROS CHIEF COMPLAINT: Left calf pain HISTORY OF PRESENT ILLNESS: Patient is a 78-year-old male here with complaints of left calf pain which started yesterday. Patient was seen by physical therapy this morning and sent in due to concern for DVT. Denied chest pain, shortness breath REVIEW OF SYSTEMS: Constitutional: No fever, no chills. Eyes: No discharge. ENT: No sore throat. Cardiovascular: No chest pain, no palpitations. Respiratory: No cough, no shortness of breath. Gastrointestinal: No abdominal pain, no vomiting. Genitourinary: No hematuria. Musculoskeletal: + LLE calf edema and tenderness Skin: No rashes. Neurological: No headache. Allergies: Coded Allergies: clarithromycin (Verified Allergy, Severe, HIVES, FACE RED AND HOT, 06/08/18) erythromycin base (Verified Allergy, Severe, HEART RACING, FACE RED, HIVES NECK TO CHEST, 06/08/18) paroxetine (Verified Allergy, Severe, HALLUCINATES, 06/08/18) Penicillins (Verified Allergy, Intermediate, RASH, 06/08/18) Uncoded Allergies: bee and wasps (Allergy, Unknown, RED, PAINFUL AND SWELLING, 11/21/13) Home Meds Active Scripts Cyclobenzaprine Hcl (CYCLOBENZAPRINE HCL) 10 Mg Tablet, 10 MG PO TID PRN for muscle spasm relief, #9 TAB Prov:EMILY BETANCOURT DO 05/28/18 Hydrocodone Bit/Acetaminophen (HYDROCODON-ACETAMINOPHEN 5-325) 1 Each Tablet, 1 EACH PO Q4-6H PRN for PAIN, #12 TAKE ONE TABLET BY MOUTH EVERY 4-6 HOURS NEEDED FOR PAIN Prov:EMILY BETANCOURT DO 05/28/18 Reported Medications Lamotrigine (LAMOTRIGINE) 300 Mg Tab.er.24, 300 MG PO 05/28/18 Famotidine (PEPCID) 20 Mg Tablet, 20 MG PO BID, #20 TAB 11/30/16 Melatonin (MELATONIN) 3 Mg Tablet, 6 MG PO QHS 11/25/16 Lurasidone Hcl (LATUDA) 20 Mg Tablet, 1 TAB PO DAILY 02/25/15 Multivitamin (MULTI VITAMIN DAILY) 1 Each Tablet, 1 EACH PO DAILY 04/26/14 [place]-3 Fatty Acids (FISH OIL) 500 Mg Capsule.dr, 500 MG PO 04/26/14 Quetiapine Fumarate (SEROQUEL) 25 Mg Tablet, 12.5 MG PO QHS PRN for SLEEP, #60 1 Refill 03/06/14 Nitroglycerin (NITROGLYCERIN) 0.4 Mg Tab.subl, 0.4 MG SL Q5MIN PRN for CHEST PAIN 03/06/14 Yvonne Root (YVONNE) 250 Mg Capsule, 550 MG PO BID, CAPSULE 03/01/14 Aspirin (ASPIRIN) 81 Mg Tab.chew, 81 MG PO QDAY, TAB.CHEW TAKE 1 TABLET BY MOUTH EVERY DAY 11/21/13 Atorvastatin (LIPITOR) 80 Mg Tab, 40 MG PO QHS, TAB TAKE ONE TABLET BY MOUTH ONCE A DAY AT BED TIME 08/30/13 Discontinued Reported Medications Apixaban (ELIQUIS) 5 Mg Tablet, 5 MG PO 05/28/18 Ibuprofen (IBUPROFEN) 800 Mg Tablet, 1 TAB PO TID, #50 TAB 11/30/16 Phenazopyridine Hcl (PHENAZOPYRIDINE HCL) 200 Mg Tablet, 200 MG PO TID, #20 TAB 11/30/16 Gelatin (GELATIN) 600 Mg Capsule, 1300 MG PO, CAPSULE 11/25/16 Glipizide (GLIPIZIDE) 5 Mg Tablet, 2.5 MG PO BID 08/30/13 Hx Smoking: No Smoking Status: Never Smoker Hx Substance Use Disorder: No Hx Alcohol Use: No Constitutional Physical Exam General Appearance: The patient is alert, has no immediate need for airway protection and no signs of toxicity. NAD Eyes: Pupils equal and round no pallor or injection. ENT, Mouth: Mucous membranes are moist. Respiratory: There are no retractions, lungs are clear to auscultation. Cardiovascular: Regular rate and rhythm. [ ] Gastrointestinal: Abdomen is soft and non tender, no masses, bowel sounds normal. Neurological: No focal neurological deficits, neurovascularly intact in the left lower extremity distal extremity. Skin: Warm and dry, no rashes. Musculoskeletal: Neck is supple non tender. + Increase edema of the left lower extremity posterior calf. DIFFERENTIAL DIAGNOSIS: After history and physical exam differential diagnosis was considered for DVT, cellulitis, venous congestion Medical Decision Making Data Points Laboratory Hematology Test 06/08/18 10:40 06/08/18 11:24 Red Blood Count 4.96 M/uL (4.00-5.60) Mean Corpuscular Volume 91.4 fL (80.0-96.0) Mean Corpuscular Hemoglobin 30.7 pg (26.0-33.0) Mean Corpuscular Hemoglobin Concent 33.7 g/dL (32.0-36.0) Red Cell Distribution Width 14.3 % (11.5-14.5) Mean Platelet Volume 8.7 fL (7.2-11.1) Neutrophils (%) (Auto) 67.9 % (39.4-72.5) Lymphocytes (%) (Auto) 15.8 % (17.6-49.6) Monocytes (%) (Auto) 13.0 % (4.1-12.4) Eosinophils (%) (Auto) 2.2 % (0.4-6.7) Basophils (%) (Auto) 1.1 % (0.3-1.4) Nucleated RBC Relative Count (auto) 0.0 /100WBC Neutrophils # (Auto) 3.7 K/uL (2.0-7.4) Lymphocytes # (Auto) 0.9 K/uL (1.3-3.6) Monocytes # (Auto) 0.7 K/uL (0.3-1.0) Eosinophils # (Auto) 0.1 K/uL (0.0-0.5) Basophils # (Auto) 0.1 K/uL (0.0-0.1) Nucleated RBC Absolute Count (auto) 0.00 K/uL Prothrombin Time 13.4 seconds (12.0-14.4) Prothromb Time International Ratio 1.02 Activated Partial Thromboplast Time 32 seconds (23-35) Sodium Level 139 mmol/L (137-145) Potassium Level 4.9 mmol/L (3.5-5.0) Chloride Level 102 mmol/L (98-107) Carbon Dioxide Level 28 mmol/L (22-30) Blood Urea Nitrogen 22 mg/dl (9-21) Creatinine 1.30 mg/dl (0.66-1.25) Glomerular Filtration Rate Calc 53.3 Random Glucose 143 mg/dl (75-110) Calcium Level 8.8 mg/dl (8.4-10.2) Total Bilirubin 0.6 mg/dl (0.2-1.3) Aspartate Amino Transf (AST/SGOT) 25 U/L (0-35) Alanine Aminotransferase (ALT/SGPT) 42 U/L (0-56) Alkaline Phosphatase 76 U/L (0-126) Total Protein 6.3 g/dl (6.3-8.2) Albumin 3.7 g/dl (3.5-5.0) Lipase 44 U/L (23-300) Urine Color Yellow Urine Clarity Clear Urine pH 6.0 pH (4.8-9.5) Urine Specific [place] 1.021 Urine Protein Negative mg/dL (NEGATIVE) Urine Glucose (UA) Negative mg/dL (NEGATIVE) Urine Ketones Negative mg/dL (NEGATIVE) Urine Blood Negative (NEGATIVE) Urine Nitrite Negative (NEGATIVE) Urine Bilirubin Negative (NEGATIVE) Urine Urobilinogen Negative mg/dL (0.2-1.9) Urine Leukocyte Esterase Negative (NEGATIVE) Urine RBC None /HPF (0-2/HPF) Urine WBC <1 /HPF (0-5/HPF) Urine Squamous Epithelial Cells Few /LPF (</=FEW) Urine Bacteria Negative /HPF (NONE-FEW) Urine Mucus None /HPF (NONE-FEW) Chemistry Test 06/08/18 10:40 06/08/18 11:24 White Blood Count 5.4 k/uL (4.5-11.0) Red Blood Count 4.96 M/uL (4.00-5.60) Hemoglobin 15.3 g/dL (14.0-18.0) Hematocrit 45.3 % (42.0-52.0) Mean Corpuscular Volume 91.4 fL (80.0-96.0) Mean Corpuscular Hemoglobin 30.7 pg (26.0-33.0) Mean Corpuscular Hemoglobin Concent 33.7 g/dL (32.0-36.0) Red Cell Distribution Width 14.3 % (11.5-14.5) Platelet Count 151 K/uL (150-450) Mean Platelet Volume 8.7 fL (7.2-11.1) Neutrophils (%) (Auto) 67.9 % (39.4-72.5) Lymphocytes (%) (Auto) 15.8 % (17.6-49.6) Monocytes (%) (Auto) 13.0 % (4.1-12.4) Eosinophils (%) (Auto) 2.2 % (0.4-6.7) Basophils (%) (Auto) 1.1 % (0.3-1.4) Nucleated RBC Relative Count (auto) 0.0 /100WBC Neutrophils # (Auto) 3.7 K/uL (2.0-7.4) Lymphocytes # (Auto) 0.9 K/uL (1.3-3.6) Monocytes # (Auto) 0.7 K/uL (0.3-1.0) Eosinophils # (Auto) 0.1 K/uL (0.0-0.5) Basophils # (Auto) 0.1 K/uL (0.0-0.1) Nucleated RBC Absolute Count (auto) 0.00 K/uL Prothrombin Time 13.4 seconds (12.0-14.4) Prothromb Time International Ratio 1.02 Activated Partial Thromboplast Time 32 seconds (23-35) Glomerular Filtration Rate Calc 53.3 Calcium Level 8.8 mg/dl (8.4-10.2) Total Bilirubin 0.6 mg/dl (0.2-1.3) Aspartate Amino Transf (AST/SGOT) 25 U/L (0-35) Alanine Aminotransferase (ALT/SGPT) 42 U/L (0-56) Alkaline Phosphatase 76 U/L (0-126) Total Protein 6.3 g/dl (6.3-8.2) Albumin 3.7 g/dl (3.5-5.0) Lipase 44 U/L (23-300) Urine Color Yellow Urine Clarity Clear Urine pH 6.0 pH (4.8-9.5) Urine Specific [place] 1.021 Urine Protein Negative mg/dL (NEGATIVE) Urine Glucose (UA) Negative mg/dL (NEGATIVE) Urine Ketones Negative mg/dL (NEGATIVE) Urine Blood Negative (NEGATIVE) Urine Nitrite Negative (NEGATIVE) Urine Bilirubin Negative (NEGATIVE) Urine Urobilinogen Negative mg/dL (0.2-1.9) Urine Leukocyte Esterase Negative (NEGATIVE) Urine RBC None /HPF (0-2/HPF) Urine WBC <1 /HPF (0-5/HPF) Urine Squamous Epithelial Cells Few /LPF (</=FEW) Urine Bacteria Negative /HPF (NONE-FEW) Urine Mucus None /HPF (NONE-FEW) Coagulation Test 06/08/18 10:40 Prothrombin Time 13.4 seconds Prothromb Time International Ratio 1.02 Activated Partial Thromboplast Time 32 seconds Urinalysis Test 06/08/18 11:24 Urine Color Yellow Urine Clarity Clear Urine pH 6.0 pH (4.8-9.5) Urine Specific [place] 1.021 Urine Protein Negative mg/dL (NEGATIVE) Urine Glucose (UA) Negative mg/dL (NEGATIVE) Urine Ketones Negative mg/dL (NEGATIVE) Urine Blood Negative (NEGATIVE) Urine Nitrite Negative (NEGATIVE) Urine Bilirubin Negative (NEGATIVE) Urine Urobilinogen Negative mg/dL (0.2-1.9) Urine Leukocyte Esterase Negative (NEGATIVE) Urine RBC None /HPF (0-2/HPF) Urine WBC <1 /HPF (0-5/HPF) Urine Squamous Epithelial Cells Few /LPF (</=FEW) Urine Bacteria Negative /HPF (NONE-FEW) Urine Mucus None /HPF (NONE-FEW) EKG/Imaging Imaging Location: [facility] Patient: Sagar Marshall : 1940 Visit/Account:[id number] Date of Sevice: 06/08/2018 Exam type: VENOUS DOPP LOW LEFT EXTREMITY History: Pain in left leg, history of PE two years ago, rule out DVT Comparison: September 17, 2011. Findings: The left lower extremity veins were imaged including the left common femoral vein, greater saphenous vein, superficial femoral vein, popliteal vein, posterior tibial vein peroneal vein and anterior tibial veins revealing no evidence of intimal thrombi the veins were compressible and demonstrated a ugmentation IMPRESSION: 1. No sonographic evidence DVT involving the left lower extremity veins ED Course/Re-evaluation ED Course Patient is a 78-year-old male here with left lower extremity edema and tenderness. Ultrasound duplex showed no acute DVT. Patient is advised to follow- up with his PCP and was hemodynamically stable at time of discharge. Decision to Disposition Date: Jun 08, 2018 Decision to Disposition Time: 13:00 Depart Departure Latest Vital Signs Impression: Primary Impression: Calf pain Condition: Improved Disposition: HOME OR SELF-CARE Patient Instructions: Leg Pain (ED) Additional Instructions: Please drink plenty of water. Please return immediately if you develop worsening pain, fevers, shortness of breath, chest pains. No DVT was identified on ultrasound imaging. Please continue physical therapy and follow-up with your PCP in the next 2 days. LOVELL,CELESTINO S DO Jun 08, 2018 10:02
[2018-06-08] MEDS ORDERED: KETOROLAC 30 MG/ML VIAL IVP ONE (10:25)
[2018-06-08 10:55] LABS: PLATELET COUNT, AUTOMATED 151 K/uL (150-450)
[2018-06-08 11:04] LABS: INR 1.02
[2018-06-08 11:30] VITALS: BP 156/89
--- NOTE | 2018-06-08 11:57 | RADIOLOGY IMAGING REPORT ---
FACILITY: PATIENT NAME: Sagar Marshall : 1940 MR: [id number] V: [id number] EXAM DATE: ORDERING PHYSICIAN: CELESTINO LOVELL TECHNOLOGIST: Location: [facility] [place] Patient: Sagar Marshall : 1940 Visit/Account:[id number] Date of Sevice: 06/08/2018 Exam type: VENOUS DOPP LOW LEFT EXTREMITY History: Pain in left leg, history of PE two years ago, rule out DVT Comparison: September 17, 2011. Findings: The left lower extremity veins were imaged including the left common femoral vein, greater saphenous vein, superficial femoral vein, popliteal vein, posterior tibial vein peroneal vein and anterior tibi al veins revealing no evidence of intimal thrombi the veins were compressible and demonstrated augmen tation IMPRESSION: 1. No sonographic evidence DVT involving the left lower extremity veins Report Dictated By: Faviola Mcintyre MD at 06/08/2018 11:51 AM Report E-Signed By: Faviola Mcintyre MD at 06/08/2018 11:52 AM WSN:[id number]
== END 2018-06-08 13:15 | disposition home or self-care (01) ==
LOC: ER 10:42
DX: M79.662 Pain in left lower leg (principal)
CPT/HCPCS: 81001; 83690; 85025; 85610; 85730; 93971; 96374; 99283; J1885; 82040; 82247; 82310; 82374; 82435; 82565; 82947; 84075; 84132; 84155; 84295; 84450; 84460; 84520; 99284

== ENCOUNTER 2018-08-06 18:56 | Emergency (ER) | payer MEDICARE, OTHER ==
[2014-05-03 10:16] VITALS: BMI 30.3
--- NOTE | 2018-08-06 19:03 | ER Report ---
History and Physical Time Seen By MD: 19:03 HPI/ROS CHIEF COMPLAINT: Abrasion medial right delcid HISTORY OF PRESENT ILLNESS: 78-year-old male presents ambulatory to the ER concerned about an abrasion to his right medial delcid. Patient states he was at the elbow, probable when he scraped his leg. She relates a history of a scrape on his left lower delcid that developed into a large ulcer with complicated cellulitis. Patient reports his last tetanus shot was one year ago. Patient states that he has plans for knee surgery to his left knee in 2 weeks. Allergies: Coded Allergies: clarithromycin (Verified Allergy, Severe, HIVES, FACE RED AND HOT, 06/08/18) erythromycin base (Verified Allergy, Severe, HEART RACING, FACE RED, HIVES NECK TO CHEST, 06/08/18) paroxetine (Verified Allergy, Severe, HALLUCINATES, 06/08/18) Penicillins (Verified Allergy, Intermediate, RASH, 06/08/18) Uncoded Allergies: bee and wasps (Allergy, Unknown, RED, PAINFUL AND SWELLING, 11/21/13) Home Meds Active Scripts Cyclobenzaprine Hcl (CYCLOBENZAPRINE HCL) 10 Mg Tablet, 10 MG PO TID PRN for muscle spasm relief, #9 TAB Prov:EMILY BETANCOURT DO 05/28/18 Hydrocodone Bit/Acetaminophen (HYDROCODON-ACETAMINOPHEN 5-325) 1 Each Tablet, 1 EACH PO Q4-6H PRN for PAIN, #12 TAKE ONE TABLET BY MOUTH EVERY 4-6 HOURS NEEDED FOR PAIN Prov:EMILY BETANCOURT DO 05/28/18 Reported Medications Lamotrigine (LAMOTRIGINE) 300 Mg Tab.er.24, 300 MG PO 05/28/18 Famotidine (PEPCID) 20 Mg Tablet, 20 MG PO BID, #20 TAB 11/30/16 Melatonin (MELATONIN) 3 Mg Tablet, 6 MG PO QHS 11/25/16 Lurasidone Hcl (LATUDA) 20 Mg Tablet, 1 TAB PO DAILY 02/25/15 Multivitamin (MULTI VITAMIN DAILY) 1 Each Tablet, 1 EACH PO DAILY 04/26/14 [place]-3 Fatty Acids (FISH OIL) 500 Mg Capsule.dr, 500 MG PO 04/26/14 Quetiapine Fumarate (SEROQUEL) 25 Mg Tablet, 12.5 MG PO QHS PRN for SLEEP, #60 1 Refill 03/06/14 Nitroglycerin (NITROGLYCERIN) 0.4 Mg Tab.subl, 0.4 MG SL Q5MIN PRN for CHEST PAIN 03/06/14 Romelia Root (ROMELIA) 250 Mg Capsule, 550 MG PO BID, CAPSULE 03/01/14 Aspirin (ASPIRIN) 81 Mg Tab.chew, 81 MG PO QDAY, TAB.CHEW TAKE 1 TABLET BY MOUTH EVERY DAY 11/21/13 Atorvastatin (LIPITOR) 80 Mg Tab, 40 MG PO QHS, TAB TAKE ONE TABLET BY MOUTH ONCE A DAY AT BED TIME 08/30/13 Past Medical/Surgical History Patient has a past medical history of TBI, angina, hyperlipidemia, SOB with exercise, pneumonia, pulmonary embolism, difficulty swallowing, liver disease, prostate cancer, vertigo, type 2 diabetes, bipolar. Patient has surgical history of left inguinal hernia repair, umbilical hernia repair, colonoscopy, a surgery due to cancer, radical prostatectomy, right knee surgery, ankle surgery, hip surgery, thumb surgery, deviated septum. Reviewed Nurses Notes: Yes Old Medical Records Reviewed: Yes Hx Smoking: No Smoking Status: Never Smoker Hx Substance Use Disorder: No Hx Alcohol Use: No Constitutional Vital Sign - Last 24 Hours 08/06/18 19:04 Temp 97.9 Pulse 79 Resp 17 B/P (MAP) 141/75 Pulse Ox 93 O2 Delivery Room Air Physical Exam General appearance: Alert no distress. Respiratory: Chest is non tender, lungs are clear to auscultation. Cardiac: Regular rate and rhythm Extremities: Examination of the right lower extremity reveals a superficial abrasion on the medial side of the midportion of the delcid. Bleeding is controlled. There is no deep bruising or tenderness of the bones. The knee and ankle demonstrate full range of motion. The right foot is neurovascularly intact. Patient has changes consistent with stasis dermatitis. DIFFERENTIAL DIAGNOSIS: After history and physical exam differential diagnosis was considered for abrasion, sprain, strain, fracture, dislocation, contusion Medical Decision Making ED Course/Re-evaluation ED Course Patient was admitted to an examination room. H&P was done. The differential diagnoses was considered. On clinical examination. Patient has a superficial abrasion on his right medial delcid. Wound care was discussed. Patient advised to follow-up with primary care if unimproved in 3-5 days. He is advised daily wound care. Decision to Disposition Date: Aug 06, 2018 Decision to Disposition Time: 19:07 Depart Departure Latest Vital Signs Vital Signs Date Time Temp Pulse Resp B/P (MAP) Pulse Ox O2 Delivery O2 Flow Rate FiO2 08/06/18 19:04 97.9 79 17 141/75 93 Room Air Impression: Primary Impression: Abrasion, right lower leg, initial encounter Condition: Improved Disposition: HOME OR SELF-CARE Patient Instructions: Acute Wound Care (ED) Additional Instructions: Perform daily wound care. Watch for signs of infection Follow-up with primary care if unimproved in 3-5 days EMILY BETANCOURT DO Aug 06, 2018 19:03
[2018-08-06 19:04] VITALS: BP 141/75
== END 2018-08-06 19:20 | disposition home or self-care (01) ==
LOC: ER 19:13
DX: S80.811A Abrasion, right lower leg, initial encounter (principal)
CPT/HCPCS: 99281

== ENCOUNTER 2018-10-28 11:06 | Emergency (ER) | payer MEDICARE, OTHER ==
[2014-05-03 10:16] VITALS: Wt 87.5 kg
[~2018-10-28 11:06] MED LIST changes: -ROSU20TA23 PO; +ROSU20TA24 PO
--- NOTE | 2018-10-28 11:09 | ER Report ---
History and Physical Time Seen By MD: 11:30 HPI/ROS CHIEF COMPLAINT: Right lower sternum swelling HISTORY OF PRESENT ILLNESS: Patient is a 78-year-old male with multiple medical problems who presents to the emergency department for evaluation of right lower extremity swelling. Patient states that he's had chronic left lower extremity swelling that over the past 2 weeks the right leg is becoming more swollen. He does have a history of venous thromboembolic disease 4 years ago had a pulmonary embolism. He is currently not on any anticoagulation. He states that the right lower extremity is extremely tight due to swelling. He denies any fevers or chills. He denies chest pain or shortness of breath. REVIEW OF SYSTEMS: Constitutional: No fever, no chills. Eyes: No discharge. ENT: No sore throat. Cardiovascular: No chest pain, no palpitations. Respiratory: No cough, no shortness of breath. Gastrointestinal: No abdominal pain, no vomiting. Genitourinary: No hematuria. Musculoskeletal: No back pain. Lower extremity swelling Skin: No rashes. Neurological: No headache. Allergies: Coded Allergies: clarithromycin (Verified Allergy, Severe, HIVES, FACE RED AND HOT, 06/08/18) erythromycin base (Verified Allergy, Severe, HEART RACING, FACE RED, HIVES NECK TO CHEST, 06/08/18) paroxetine (Verified Allergy, Severe, HALLUCINATES, 06/08/18) Penicillins (Verified Allergy, Intermediate, RASH, 06/08/18) Uncoded Allergies: bee and wasps (Allergy, Unknown, RED, PAINFUL AND SWELLING, 11/21/13) Home Meds Active Scripts Furosemide (LASIX) 20 Mg Tablet, 1 TAB PO Q12H for 14 Days, #28 TAB 0 Refills Prov:HUGO BUCHANAN MD 10/28/18 Cyclobenzaprine Hcl (CYCLOBENZAPRINE HCL) 10 Mg Tablet, 10 MG PO TID PRN for muscle spasm relief, #9 TAB Prov:EMILY BETANCOURT DO 05/28/18 Hydrocodone Bit/Acetaminophen (HYDROCODON-ACETAMINOPHEN 5-325) 1 Each Tablet, 1 EACH PO Q4-6H PRN for PAIN, #12 TAKE ONE TABLET BY MOUTH EVERY 4-6 HOURS NEEDED FOR PAIN Prov:EMILY BETANCOURT DO 05/28/18 Reported Medications Lamotrigine (LAMOTRIGINE) 300 Mg Tab.er.24, 300 MG PO 05/28/18 Famotidine (PEPCID) 20 Mg Tablet, 20 MG PO BID, #20 TAB 11/30/16 Melatonin (MELATONIN) 3 Mg Tablet, 6 MG PO QHS 11/25/16 Lurasidone Hcl (LATUDA) 20 Mg Tablet, 1 TAB PO DAILY 02/25/15 Multivitamin (MULTI VITAMIN DAILY) 1 Each Tablet, 1 EACH PO DAILY 04/26/14 [place]-3 Fatty Acids (FISH OIL) 500 Mg Capsule.dr, 500 MG PO 04/26/14 Quetiapine Fumarate (SEROQUEL) 25 Mg Tablet, 12.5 MG PO QHS PRN for SLEEP, #60 1 Refill 03/06/14 Nitroglycerin (NITROGLYCERIN) 0.4 Mg Tab.subl, 0.4 MG SL Q5MIN PRN for CHEST PAIN 03/06/14 Yvonne Root (YVONNE) 250 Mg Capsule, 550 MG PO BID, CAPSULE 03/01/14 Aspirin (ASPIRIN) 81 Mg Tab.chew, 81 MG PO QDAY, TAB.CHEW TAKE 1 TABLET BY MOUTH EVERY DAY 11/21/13 Atorvastatin (LIPITOR) 80 Mg Tab, 40 MG PO QHS, TAB TAKE ONE TABLET BY MOUTH ONCE A DAY AT BED TIME 08/30/13 Past Medical/Surgical History Patient has a past medical history of TBI, angina, hyperlipidemia, SOB with exercise, pneumonia, pulmonary embolism, difficulty swallowing, liver disease, prostate cancer, vertigo, type 2 diabetes, bipolar. Patient has surgical history of left inguinal hernia repair, umbilical hernia repair, colonoscopy, a surgery due to cancer, radical prostatectomy, right knee surgery, ankle surgery, hip surgery, thumb surgery, deviated septum. Hx Smoking: No Smoking Status: Never Smoker Hx Substance Use Disorder: No Hx Alcohol Use: No Constitutional Vital Sign - Last 24 Hours 10/28/18 10/28/18 10/28/18 10/28/18 11:06 11:16 11:17 11:26 Temp 97.7 Pulse 88 66 68 Resp 16 B/P (MAP) 146/85 146/85 (105) Pulse Ox 95 98 O2 Delivery Room Air 10/28/18 10/28/18 11:30 11:46 Pulse 65 B/P (MAP) 142/78 (99) Pulse Ox 97 Physical Exam General Appearance: The patient is alert, has no immediate need for airway protection and no current signs of toxicity. Eyes: Pupils equal and round no injection. Respiratory: Chest is non tender, lungs are clear to auscultation. Cardiac: regular rate and rhythm [ ] Gastrointestinal: Abdomen is soft and non tender, no masses, bowel sounds angelica l. Musculoskeletal: Neck: Neck is supple and non tender. Extremities are noted for bilateral swelling with pitting edema. There is no erythema or warmth to suggest cellulitis however there are chronic venous stasis ulcer changes. [ ] Medical Decision Making Data Points Result Diagram: 10/28/18 1139 10/28/18 1139 Laboratory Hematology Test 10/28/18 11:39 Red Blood Count 5.00 M/uL (4.00-5.60) Mean Corpuscular Volume 92.6 fL (80.0-96.0) Mean Corpuscular Hemoglobin 30.9 pg (26.0-33.0) Mean Corpuscular Hemoglobin Concent 33.3 g/dL (32.0-36.0) Red Cell Distribution Width 14.9 % (11.5-14.5) Mean Platelet Volume 8.3 fL (7.2-11.1) Neutrophils (%) (Auto) 66.3 % (39.4-72.5) Lymphocytes (%) (Auto) 16.3 % (17.6-49.6) Monocytes (%) (Auto) 11.5 % (4.1-12.4) Eosinophils (%) (Auto) 3.2 % (0.4-6.7) Basophils (%) (Auto) 2.7 % (0.3-1.4) Nucleated RBC Relative Count (auto) 0.0 /100WBC Neutrophils # (Auto) 3.2 K/uL (2.0-7.4) Lymphocytes # (Auto) 0.8 K/uL (1.3-3.6) Monocytes # (Auto) 0.6 K/uL (0.3-1.0) Eosinophils # (Auto) 0.2 K/uL (0.0-0.5) Basophils # (Auto) 0.1 K/uL (0.0-0.1) Nucleated RBC Absolute Count (auto) 0.00 K/uL Peripheral Blood Smear No Y/N Sodium Level 137 mmol/L (137-145) Potassium Level 4.5 mmol/L (3.5-5.0) Chloride Level 105 mmol/L (98-107) Carbon Dioxide Level 26 mmol/L (22-30) Blood Urea Nitrogen 18 mg/dl (9-21) Creatinine 1.00 mg/dl (0.66-1.25) Glomerular Filtration Rate Calc > 60.0 Random Glucose 141 mg/dl (75-110) Calcium Level 8.5 mg/dl (8.4-10.2) Chemistry Test 10/28/18 11:39 White Blood Count 4.9 k/uL (4.5-11.0) Red Blood Count 5.00 M/uL (4.00-5.60) Hemoglobin 15.4 g/dL (14.0-18.0) Hematocrit 46.3 % (42.0-52.0) Mean Corpuscular Volume 92.6 fL (80.0-96.0) Mean Corpuscular Hemoglobin 30.9 pg (26.0-33.0) Mean Corpuscular Hemoglobin Concent 33.3 g/dL (32.0-36.0) Red Cell Distribution Width 14.9 % (11.5-14.5) Platelet Count 155 K/uL (150-450) Mean Platelet Volume 8.3 fL (7.2-11.1) Neutrophils (%) (Auto) 66.3 % (39.4-72.5) Lymphocytes (%) (Auto) 16.3 % (17.6-49.6) Monocytes (%) (Auto) 11.5 % (4.1-12.4) Eosinophils (%) (Auto) 3.2 % (0.4-6.7) Basophils (%) (Auto) 2.7 % (0.3-1.4) Nucleated RBC Relative Count (auto) 0.0 /100WBC Neutrophils # (Auto) 3.2 K/uL (2.0-7.4) Lymphocytes # (Auto) 0.8 K/uL (1.3-3.6) Monocytes # (Auto) 0.6 K/uL (0.3-1.0) Eosinophils # (Auto) 0.2 K/uL (0.0-0.5) Basophils # (Auto) 0.1 K/uL (0.0-0.1) Nucleated RBC Absolute Count (auto) 0.00 K/uL Peripheral Blood Smear No Y/N Glomerular Filtration Rate Calc > 60.0 Calcium Level 8.5 mg/dl (8.4-10.2) EKG/Imaging Imaging Ultrasound negative for DVT ED Course/Re-evaluation ED Course 10/28/2018 12:30:27 pm at this time will be to perform CBC bmp; also obtain venous Doppler ultrasound of lower extremities Decision to Disposition Date: October 28, 2018 Decision to Disposition Time: 13:29 Depart Departure Latest Vital Signs Vital Signs Date Time Temp Pulse Resp B/P (MAP) Pulse Ox O2 Delivery O2 Flow Rate FiO2 10/28/18 11:46 65 97 10/28/18 11:30 142/78 (99) 10/28/18 11:16 97.7 16 Room Air Impression: Primary Impression: Peripheral edema Condition: Improved Disposition: HOME OR SELF-CARE New Scripts Furosemide (LASIX) 20 Mg Tablet 1 TAB PO BID for 14 Days, #28 TAB 0 Refills Prov: HUGO BUCHANAN MD 10/28/18 Patient Instructions: Edema,Peripheral Additional Instructions: Make a follow-up appointment in the next 2-4 weeks for reevaluation of lower extremity edema HUGO BUCHANAN MD October 28, 2018 11:09
[2018-10-28 11:56] LABS: PLATELET COUNT, AUTOMATED 155 K/uL (150-450)
[2018-10-28] MEDS ORDERED: FURO20TA19 PO ×2 (13:30→13:44)
--- NOTE | 2018-10-28 13:52 | RADIOLOGY IMAGING REPORT ---
FACILITY: [facility] PATIENT NAME: Sagar Marshall : 1940 MR: [id number] V: [id number] EXAM DATE: ORDERING PHYSICIAN: HUGO BUCHANAN TECHNOLOGIST: Location: [facility] Patient: Sagar Marshall : 1940 Visit/Account:[id number] Date of Sevice: 10/28/2018 EXAMINATION: Bilateral lower extremity duplex venous ultrasound COMPARISON: Ultrasound 06/08/2018. HISTORY: Type 2 diabetes. Lower extremity discoloration for months. FINDINGS: Standard bilateral lower extremity Doppler ultrasound with color flow and spectral analysis is performed. The bilateral common femoral, femoral, and popliteal veins are widely patent and compress appropriate ly. The visualized calf veins and the proximal greater saphenous vein are patent. No popliteal fluid collection. Distal subcutaneous soft tissue edema. IMPRESSION: No evidence of deep venous thrombosis within either lower extremity. Report Dictated By: Denny Juan MD at 10/28/2018 1:46 PM Report E-Signed By: Denny Juan MD at 10/28/2018 1:48 PM WSN:[id number]
[2018-10-28 14:19] VITALS: BP 138/85
== END 2018-10-28 14:18 | disposition home or self-care (01) ==
LOC: ER 11:17
DX: R60.0 Localized edema (principal)
CPT/HCPCS: 82310; 82374; 82435; 82565; 82947; 84132; 84295; 84520; 85025; 93970; 99284